=== PATIENT | male | born 1965 | race Two or more races ===

== ENCOUNTER 2021-10-15 10:12 | Outpatient (CLI) | payer OTHER | END 2021-10-15 10:26 | disposition home or self-care (01) | LOC: MRI 10:12 | PROVIDERS: ATTEND General Practice | DX: M25.562 Pain in left knee (principal) | CPT/HCPCS: 73721 ==

== ENCOUNTER 2021-12-10 08:00 | Outpatient (CLI) | payer OTHER | END 2021-12-10 08:30 | disposition home or self-care (01) | LOC: PPH VACUNA 08:00 | PROVIDERS: ATTEND Emergency Medicine Pediatric Emergency Medicine | DX: Z23 Encounter for immunization (principal) ==